=== PATIENT | male | born 1965 | race Caucasian/White ===

== ENCOUNTER → 2016-08-14 | Outpatient (CLI) | payer MEDICARE, OTHER ==
[~2016-08-14] MED LIST: ALPR1TAB3 PO; ATOR1TAB18 PO; ATOR80TA PO; BACL10TA PO; BACT800T5 PO; CEPH500T PO; CYMB60CA PO; DEPA500T3 PO; GLIP5 PO; HYDR-3580 PO; LAMI250T PO; METF1000 PO; MOBI7.5T PO; ONETKIT10 XX; ONETKIT9; ONETMIS7; SERO25TA PO; ST JTAB PO; TAMS0.4C67 PO; TIZA4 PO; TOPI50TA4 PO; TRIA.1%T TOP; Z.0.NO CURRENT MEDS; [UNRECOGNIZED DRUG - CODE]
[2016-08-14 10:51] LABS: ALKALINE PHOSPHATASE 68 U/L (45-117); ALT (GPT) 50 U/L (12-78); ANION GAP 7 MEQ/L (5-15); AST (GOT) 25 U/L (15-37); BICARBONATE 26.7 MEQ/L (21.0-32.0); BLOOD UREA NITROGEN 14 MG/DL (7-18); CHLORIDE 105 MEQ/L (98-107); GLOMERULAR FILTRATION RATE 83 ML/MIN (>89); GLUCOSE,FASTING 108 MG/DL (74-99); HDL CHOLESTEROL 38.4 MG/DL (40.0-60.0); LDL CHOLESTEROL 43 MG/DL (0-99); SODIUM (NA) 139 MEQ/L (136-145); TOTAL BILIRUBIN ADULT 0.4 MG/DL (0.2-1.0)
[2016-08-14 13:32] LABS: HEMOGLOBIN A1b 1.9 %; HEMOGLOBIN Ao 84.3 %; HEMOGLOBIN LA1C 1.9 %; HEMOGLOBIN P3 3.8 %
== END ==
LOC: CLAB 09:55
PROVIDERS: ATTEND Family Medicine
DX: E78.5 Hyperlipidemia, unspecified (principal); E03.9 Hypothyroidism, unspecified; E11.9 Type 2 diabetes mellitus without complications; D56.5 Hemoglobin E-beta thalassemia; Z01.01 Encounter for examination of eyes and vision with abnormal findings; Z51.81 Encounter for therapeutic drug level monitoring
CPT/HCPCS: 36415; 80053; 80061; 83036; 84443